=== PATIENT | female | born 1955 | race Caucasian/White ===

== ENCOUNTER 2020-08-17 13:24 | Observation (INO) | payer OTHER ==
[~2020-08-17] VITALS: Ht 152.4 cm; Wt 64.4 kg
[2020-08-17 13:32] VITALS: Ht 152.4 cm; Wt 64.4 kg
--- NOTE | 2020-08-17 13:45 | NUR ---
FIRST POINT OF CONTACT WITH PT FROM [facility] [employer] [facility]. PT PRESENTS WITH INSTRUCTIONS FROM HER PCP FOR ABNORMAL HGB 5.9. PT STS THAT SHE HAS SOME DIZZINESS/FATIGUE. PT APPEARS PALE WARM AND DRY. SCLERA APPEARS PALE. PT STS THAT SHE HAS NO ABDOMINAL PAIN/CHEST PAIN AT THIS TIME. PT DENIES ANY BLOOD OR DARK STOOLS. PT PLACED ON CM, NSR NOTED. VSS. RESP E/U. NO DISTRESS NOTED. PT AAOX4. PT STS THAT IF SHE WERE TO NEED A BLOOD TRANSFUSION SHE WILL SIGN CONSENT.
--- NOTE | 2020-08-17 13:55 | NUR ---
BI ANALYST RECTAL EXAM WITH MD MAOTS, PER MD NORMAL EXAM.
[2020-08-17 14:22] LABS: BASOPHIL % 0 % (0-2); RED CELL DISTRIBUTION WIDTH 19.3 % (11.5-14.5)
[2020-08-17 14:24] LABS: PLATELET COUNT 675 x10^3mcL (130-400)
[2020-08-17 14:36] LABS: CALCIUM 9.2 mg/dL (8.5-10.1); CARBON DIOXIDE 23.4 mmol/L (21-32); CREATININE SERUM 1.2 mg/dL (0.6-1.0); POTASSIUM SERUM 4.2 mmol/L (3.5-5.1)
[2020-08-17 14:40] LABS: BILIRUBIN TOTAL 0.2 mg/dL (0.20-1.00); TOTAL PROTEIN, SERUM 6.2 g/dL (6.4-8.2)
[2020-08-17 14:44] LABS: ovalocyte/elliptocyte 1+; rbc morphology (normal/abnorm) ABNORMAL (NORMAL)
[2020-08-17 14:51] LABS: ALBUMIN 3.3 g/dL (3.4-5.0)
--- NOTE | 2020-08-17 14:59 | NUR ---
CONSENT SIGNED FOR BLOOD TRANSFUSION.
--- NOTE | 2020-08-17 15:04 | NUR ---
ATTEMPTED TO CALL REPORT, JAKE TOBAR STS JENNI WILL CALL BACK.
--- NOTE | 2020-08-17 15:26 | NUR ---
ATTEMPTED TO CALL REPORT NO ANSWER.
--- NOTE | 2020-08-17 15:29 | NUR ---
REPORT GIVEN TO JENNI RN TO ASSUME CARE OF PT.
--- NOTE | 2020-08-17 15:56 | NUR ---
BLOOD TRANSFUSION BEGUN.
--- NOTE | 2020-08-17 16:21 | NUR ---
PT TAKEN UPSTAIRS WITH BLOOD TRANSFUSIN IN PROCESS. VITAL COMPLETION SENT WITH CHART.
[2020-08-17 16:58] VITALS: BP 126/60
--- NOTE | 2020-08-17 17:24 | NUR ---
RECEIVED PT FROM ER, ALREADY IN BED WITH JENNI RN AT BEDSIDE INTERVIEW PATIENT, ASSESSMENT COMPLETED. NOTED TELE #47 NSR, HR 71 NOTED. DENIED ANY PAIN. NO DISTRESS NOTED. CALL LIGHT WITHIN REACH. BLOOD INFUSING TO RAC IV PATENT. JENNI RESUME CARE.
--- NOTE | 2020-08-17 18:40 | NUR ---
PT RESTING IN BED, AOX4, RESP E/U ON RA. BLOD TRANSFUSION ONGOING AT THIS TIME, NO SIGNS OF ALLERGIC REACTION OR ACUTE DISTRESS NOTED. IV TO RAC PATENT/INTACT, WNL. BED IN LOWEST POSITION AND CALL LIGHT WITHIN REACH. WILL CONTINUE TO MONITOR.
[2020-08-17 19:42] VITALS: BP 125/75
--- NOTE | 2020-08-17 20:47 | NUR ---
PATIENT RECEIVED AWAKE, ALERT, ORIENTED X4 IN BED. [place]SIAN SPEAKING. RESPIRATION EVEN AND UNLABORED, ON ROOM AIR. ONGOING 0.9% NS AT 80 CC/HR INFUSING WELL AT THE R ANTECUBITAL AREA. DENIES GI DISCOMFORT. LBM 10/. PATIENT REFUSED EGD/COLONOSCOPY. DR BARTON AWARE PERSONALLY. VOIDING FREELY WITHOUT DIFFICULTY. GENERALIZED WEAKNESS, NEEDS MINIMAL ASSISTANCE W/ ADL'S. SKIN DRY AND INTACT. DENIES PAIN AT THIS TIME. ON TELE #47. WILL CONITNUE TO MONITOR.
[2020-08-18 05:05] VITALS: BP 139/66
--- NOTE | 2020-08-18 06:40 | NUR ---
PATIENT RESTING IN BED. RESPIRATION EVEN AND UNLABORED, ON ROOM AIR. MAINTAINED ON NPO EXCEPT MEDS. IV SITE NO SIGN OF INFILTRATION. ASSISTED WITH NEEDS. SAFETY OBSERVED. PLACED BED IN THE LOWEST POSITION. PLACED CALL LIGHT WITHIN REACH AT ALL TIMES.
--- NOTE | 2020-08-18 07:12 | NUR ---
RECEIVED PT FROM SENIOR LIVING ADVISOR NURSE. PT AMBULATING FROM RESTROOM TO BED, GAIT BALANCED/STEADY. REPORTED FORMED NON-BLOODY BM AT THIS TIME. DENIES DIZZINESS, NAUSEA OR WEAKNESS. NO ACUTE DISTRESS NOTED. ON TELE 47 SHOWING NSR, HR: 63. IV TO RAC PATENT/INTACT, WNL. BED IN LOWEST POSITION AND CALL LIGHT WITHIN REACH. WILL CONTINUE TO MONITOR.
[2020-08-18 07:30] LABS: ALKALINE PHOSPHATASE 58 U/L (46-116); ALT/SGPT 28 U/L (14-59); AST/SGOT 18 U/L (15-37); BILIRUBIN TOTAL 0.3 mg/dL (0.20-1.00); CARBON DIOXIDE 26.5 mmol/L (21-32); CHLORIDE SERUM 109 mmol/L (98-107); CREATININE SERUM 0.8 mg/dL (0.6-1.0); GFR1 > 60 mL/min; GLUCOSE SERUM 85 mg/dL (74-106); SODIUM SERUM 144 mmol/L (136-145)
[2020-08-18 07:32] LABS: ALBUMIN 2.9 g/dL (3.4-5.0); TOTAL PROTEIN, SERUM 5.7 g/dL (6.4-8.2)
[2020-08-18 07:56] VITALS: BP 136/51
[2020-08-18 09:19] LABS: BASOPHIL % 0.6 % (0-2)
[2020-08-18 09:27] LABS: PLATELET COUNT 613 x10^3mcL (130-400); RED CELL DISTRIBUTION WIDTH 20.9 % (11.5-14.5)
[2020-08-18 17:06] VITALS: BP 125/66
[2020-08-18 17:13] LABS: burr cell (echinocyte) 1+; ovalocyte/elliptocyte 1+; rbc morphology (normal/abnorm) ABNORMAL (NORMAL)
--- NOTE | 2020-08-18 18:29 | NUR ---
PT RESTING IN BED, AXO4, RESP E/U ON RA. REPORTS SEVEREAL EPISODES OF CLEAR, WATERY BM S/P BOWEL PREP. DENIES N/V OR ABD PAIN. NO ACTUE DISTRESS NOTED. IV TO RAC PATENT/INTACT, WNL. BED IN LOWEST POSITION AND CALL LIGHT WITHIN REACH. WILL ENDORSE TO ONCOMING NURSE.
[2020-08-18 21:08] VITALS: BP 132/56
[2020-08-19 05:31] VITALS: BP 148/89
--- NOTE | 2020-08-19 06:38 | NUR ---
AOX4RA AMBULATORY IN ROOM DENIES PAIN/DISCOMFORT NPO SICNE 0000 S/P BOWEL PREP SCHEDULED COLONOSCOPY TODAY VSS WILL ENDORSE TO ONCOMING RN
[2020-08-19 07:17] LABS: ALBUMIN 3.4 g/dL (3.4-5.0); ALKALINE PHOSPHATASE 71 U/L (46-116); ALT/SGPT 39 U/L (14-59); AST/SGOT 27 U/L (15-37); CALCIUM 8.7 mg/dL (8.5-10.1); CARBON DIOXIDE 22.5 mmol/L (21-32); CHLORIDE SERUM 109 mmol/L (98-107); CREATININE SERUM 0.7 mg/dL (0.6-1.0); GFR1 > 60 mL/min; GLUCOSE SERUM 94 mg/dL (74-106); POTASSIUM SERUM 3.9 mmol/L (3.5-5.1); SODIUM SERUM 142 mmol/L (136-145); TOTAL PROTEIN, SERUM 6.5 g/dL (6.4-8.2)
--- NOTE | 2020-08-19 07:40 | NUR ---
RECEIVED REPORT FROM SHAKA TOBAR. PATIENT A&OX4, ROOM AIR, IVF INFUSING. INTRODUCED SELF AND ROLE. WILL CONTINUE TO MONITOR.
[2020-08-19 08:10] VITALS: BP 141/65
[2020-08-19 11:52] VITALS: BP 173/88
[2020-08-19 12:29] LABS: IRON 14 ug/dL (50-170); TOTAL IRON BINDING CAPACITY 418 ug/dL (250-450)
--- NOTE | 2020-08-19 14:29 | NUR ---
PATIENT S/P COLONOSCOPY. PATIENT A&OX4,ROOM AIR, VITALS STABLE, VOIDING IN BATHROOM. NO C/O PAIN. PLAN FOR DISCHARGE PER DR. COFFEY. WILL CONTINUE TO MONITOR.
[2020-08-19] MEDS ORDERED: FEROSUL325 MG PO (15:01)
[2020-08-19 15:10] VITALS: BP 173/88
--- NOTE | 2020-08-19 15:26 | NUR ---
PATIENT ADMITTED FOR ANEMIA. PATIENT A&OX4, ROOM AIR, VITALS STABLE, VOIDING IN THE BATHROOM, UP AD ALICIA. TOLERATING DIET WITH NO C/O N/V. COLONOSCOPY DONE TODAY. SPOKE WITH DR. COFFEY WHO STATED THE PATIENT IS READY FOR DISCHARGE. ORDERS PLACED BUT UNVERIFIED DUE TO [facility] ISSUES. DISCHARGE INSTRUCTIONS PRINTED AND REVIEWED WITH PATIENT. ALL QUESTIOSN AND CONCERNS ADDRESSED. MEDICATIONS SENT TO [facility]. IV ACCESS REMOVED WITHOUT COMPLICATIONS. PATIENT LEFT UNIT WITH ALL BELONGINGS IN NO APPARENT DISTRESS ESCORTED BY SALES REPRESENTATIVE PRINTING PAPER.
== END 2020-08-19 14:57 | disposition home or self-care (01) ==
LOC: ED 13:24 → DU 14:39
PROVIDERS: Emergency Medicine; Internal Medicine Gastroenterology; ADMIT Internal Medicine; ATTEND Internal Medicine
DX: D64.9 Anemia, unspecified (principal); K57.90 Diverticulosis of intestine, part unspecified, without perforation or abscess without bleeding; K64.8 Other hemorrhoids
CPT/HCPCS: 45378; 82962; C9113; G0378; J1200; J1610; J2250; J2310; J3010; J3490; J7030; J7050; P9016; Q0092